=== PATIENT | male | born 1985 | race Caucasian/White ===

== ENCOUNTER 2016-10-29 12:06 | Emergency (ER) | payer BC ==
[2016-10-29 13:41] VITALS: BP 120/66
--- NOTE | 2016-10-29 15:41 | UC ---
Hand/Wrist HPI - History Of Current Complaint Chief Complaint: UC Stated Complaint: LEFT HAND PAIN Time Seen by Provider: 10/29/16 15:34 Hx Obtained From: Patient Onset/Duration: Sudden Onset - jammed left 5th finger playing basketball this morning. Hagan out of place and pushed it back with a "crunch", Lasting Hours - 4 Character Of Pain: Aching, Throbbing Aggravating Factor(s): Lifting, Flexion Associated Signs And Symptoms: Positive: Bruising. Negative: Numbness/Tingling Related History: Dominant Hand Right - Allergies/Home Medications Allergies/Adverse Reactions: Allergies Allergy/AdvReac Type Severity Reaction Status Date / Time No Known Allergies Allergy Verified 03/09/15 12:07 PMH/Surg Hx/FS Hx/Imm Hx Previously Healthy: Yes Endocrine History Of: Denies: Diabetes Cardiovascular History Of: Denies: Hypertension Respiratory History Of: Denies: Asthma - Surgical History Surgical History: None - Family History Known Family History: Positive: Cardiac Disease, Hypertension Family History: Father: HTN, [place] age 58, quadruple bypass. Paternal uncle: [place], quadruple bypass. Cousin: "mini heart attack" age 29 - Social History Occupation: Employed Full-time Lives: Alone Alcohol Use: Occasionally Substance Use Type: None Smoking Status (MU): Never Smoked Tobacco Review of Systems Musculoskeletal: Arthralgia All Other Systems Reviewed And Are Negative: Yes Physical Exam Triage Information Reviewed: Yes Appearance: Well-Appearing, No Pain Distress, Well-Nourished Vital Signs: Initial Vital Signs Temp 98.8 F 10/29/16 13:37 Pulse 60 10/29/16 13:37 Resp 16 10/29/16 13:37 BP 120/66 10/29/16 13:37 Pulse Ox 100 10/29/16 13:37 Vital Signs Reviewed: Yes Eyes: Positive: Conjunctiva Clear Neck exam: Normal Respiratory Exam: Normal Cardiovascular Exam: Normal Musculoskeletal: Positive: ROM Limited @ - Left 5th MCP swollen and unable to move, Other: - Tender over the distal 5th metacarpal Neurological Exam: Normal Neurological: Positive: Other: - sensation intact over the 5th finger Psychological Exam: Normal Skin Exam: Normal Procedures - Procedure Summary Procedure Summary: Left ulnar gutter splint placed by Hand/Wrist Course/Dx - Differential Dx/Diagnosis Differential Diagnosis/HQI/PQRI: Contusion, Fracture, Sprain Provider Diagnoses: Distal 5th metacarpal fracture. Discharge - Discharge Plan Condition: Stable Disposition: HOME Patient Education Materials: Boxer Fracture (ED), Splint Care (ED), How to Use a Sling (GEN)
--- NOTE | 2016-10-29 16:10 | RAD ---
INDICATION: Left hand injury. TECHNIQUE: 4 views of the left hand were obtained. FINDINGS: There is an oblique comminuted fracture of the distal diaphysis and metaphysis of the fifth metacarpal. The fracture fragments are overriding. In addition, there is anterior lateral angulation of the distal fragment relative to the proximal fragment. Joint spaces appear maintained. IMPRESSION: OBLIQUE, DISPLACED, ANGULATED FRACTURE OF THE FIFTH METACARPAL.
== END 2016-10-29 16:34 | disposition home or self-care (01) ==
LOC: UCCORT 12:06
DX: S62.317A Displaced fracture of base of fifth metacarpal bone, left hand, initial encounter for closed fracture (principal); W23.0XXA Caught, crushed, jammed, or pinched between moving objects, initial encounter; Y93.67 Activity, basketball; Y92.9 Unspecified place or not applicable
CPT/HCPCS: 99212; G0463

== ENCOUNTER → 2016-11-02 14:31 | Day surgery (SDC) | payer BC ==
[~2016-11-02 14:31] MED LIST: Buffered Lidocaine 1% SYR 3ML* 3 ML/SYR SYRINGE ONE; DiMENhydriNATE IV* 50 MG/ML VIAL IV PUSH PRN; Ketorolac INJ* 30 MG/ML 1 ML VIAL IV PRN; Ketorolac INJ* 30 MG/ML 1 ML VIAL ONE; Lidocaine 2% PF * 5 ML VIAL ONE; Propofol* 10 MG/ML 20 ML BTL IV PUSH ONE; ceFAZolin 2 GM PREMIX (*) 2 GM/50 ML BAG IVPB ONE; fentaNYL* 50 MCG/ML 2 ML VIAL (100 MCG VIAL) IV PRN; fentaNYL* 50 MCG/ML 2 ML VIAL (100 MCG VIAL) ONE; oxyCODONE/Acetamin 5/325 MG* TAB ONE
[2016-11-02 21:12] VITALS: BP 148/92
--- NOTE | 2016-11-03 13:16 | RAD ---
INDICATION: Trauma, fifth metacarpal injury COMPARISONS: 10/29/2016 TECHNIQUE: Fluoroscopy was provided for a surgical procedure. Total fluoroscopy time is: 22 seconds FINDINGS: Spot images of the straight internal fixation of the fifth metacarpal IMPRESSION: FLUOROSCOPY WAS PROVIDED FOR A SURGICAL PROCEDURE CPT II Codes: 6045F
--- NOTE | 2016-11-04 22:59 | OP ---
DATE OF OPERATION: 11/02/16 - [facility] DATE OF : 89 SURGEON: Vasiliy Gamboa MD SUPERVISOR SPECIAL EDUCATION: FABIO Aguilar ANESTHESIOLOGIST: Dr. Brasher. ANESTHESIA: General. PRE-OP DIAGNOSIS: Left displaced and malrotated fifth metacarpal distal shaft and neck fracture. POST-OP DIAGNOSIS: Left displaced and malrotated fifth metacarpal distal shaft and neck fracture. OPERATIVE PROCEDURE: Open reduction and internal fixation left fifth metacarpal comminuted distal shaft and neck fracture. INDICATIONS: Gianluca is a 31-year-old male. He had an injury playing basketball , fractured the left fifth metacarpal. On x-ray, it appeared to be a spiral oblique fracture. We talked about risks and benefits and treatment options including pinning versus open reduction and internal fixation. Ultimately, he wanted to proceed with open reduction and internal fixation. Again, we talked about the risk of nonunion, malunion, tendon adhesions amongst other things and he elected to proceed. ESTIMATED BLOOD LOSS: 5 mL. COMPLICATIONS: None. FINDINGS: Significantly comminuted fracture. DESCRIPTION OF PROCEDURE: Gianluca was seen in the preoperative holding area and the correct site and side were marked. We came back to the operating room, where anesthesia was induced and the arm was prepped and draped in the usual fashion. A formal time-out was performed. A curvilinear incision was made over the length of the fifth metacarpal bone. Dissection was carried down and the full-thickness flaps were raised off the paratenon. The interval between the EDM and the EDC tendon was developed. I then went ahead and split the periosteum longitudinally. Full-thickness flaps were raised right off the bone. Fracture site was identified. Immediately, I noted a significant amount of comminution. There was a significant amount of impaction as well. I went ahead and cleaned up the fracture site. This took quite a bit of work. Finally, I was able to mobilize the fracture fragments and release the impaction. I then went ahead and placed a [id number] clamp and reduced the spica bone in the shaft. Bones had a nice cortical maxx, I went ahead and placed one 1.5 mm lag screw. I then went ahead and secured a longitudinal split through the dorsal spica bone with a 1.3 mm lag screw from ulnar to radial. With this screw in place, I was able to place a second more proximal 1.5 mm lag screw to obtain additional stabilization. At this point, I brought in a 1.5 mm metal T- plate. There was not much dorsal bone left due to the comminution in the area of the metacarpal neck. Proximally, I was able to secure the bone and then I went ahead and placed distally some 1.5 mm variable- angle locking screws grabbing the subchondral bone distally and an additional more proximal screw out the volar metacarpal neck. Overall, the alignments were nice. I went ahead and checked fluoroscopy throughout the case and this looked nice. I went ahead and checked the clinical alignment. It did seem like initially he had been completely underlapping the ring finger. He now was brought out in from that rotation. I checked this compared to the contralateral hand. He seemed like he might be able to touch over corrected, but ultimately it was minimal and the bony reduction appeared anatomic clinically and on flouroscopy. I decided this was acceptable and fine. I went ahead and irrigated the wound. The periosteal flaps were raised and were then closed with some 5-0 Prolene suture with the knots buried. The plate was covered. I then went ahead and repaired the distal split I had made between the EDC and the EDM tendons with some 5-0 Prolene suture with the knot buried. I then went ahead and irrigated the wound and closed the skin with some 4-0 nylon suture. The wound was then dressed with Xeroform, 4x4's, sterile Webril, and an ulnar gutter splint was placed in the protected position. He was then awoken back up and taken to the recovery room in stable condition. POSTOPERATIVE PLAN: I will see him back in my office next week. We will get his splint off and I am going to let him start some gentle motion. He is not going to be able to do any lifting, pushing, or pulling for another month or so , but I will see him back in the office next week. [id number]/CPS #: [id number] BONILLA
== END | disposition home or self-care (01) ==
LOC: OREAST 14:31
PROVIDERS: ATTEND Orthopaedic Surgery Hand Surgery
DX: S62.337A Displaced fracture of neck of fifth metacarpal bone, left hand, initial encounter for closed fracture (principal); Z87.891 Personal history of nicotine dependence; W21.05XA Struck by basketball, initial encounter; Y93.67 Activity, basketball; Y92.310 Basketball court as the place of occurrence of the external cause
CPT/HCPCS: 76000; A9270-GY; C1713; C1776; J0690; J1885; J2704; J3010

== ENCOUNTER 2017-06-05 15:46 | Emergency (ER) | payer BC, OTHER ==
--- NOTE | 2017-06-05 15:55 | UC ---
Eye Complaint HPI - HPI Summary HPI Summary: 32 YEAR OLD MALE PRESENTS WITH COMPLAINS OF RIGHT EYE CONTUSION SECONDARY TO AN ELBOW BLOW. - History of Current Complaint Stated Complaint: HIT IN RIGHT EYE (WC) Time Seen by Provider: 06/05/17 15:51 Onset/Duration: Sudden Onset Timing: Constant Severity Initially: Moderate Severity Currently: Moderate Pain Scale Used: FLACC (Peds Only) - 4 Location of Injury: Conjunctiva Character: Sharp Aggravating Factor(s): Light Alleviating Factor(s): Nothing Associated Signs And Symptoms: Positive: Photophobia - Allergies/Home Medications Allergies/Adverse Reactions: Allergies Allergy/AdvReac Type Severity Reaction Status Date / Time No Known Allergies Allergy Verified 06/05/17 16:15 Home Medications: Home Medications ALPRAZolam TAB* [Xanax TAB*] 1 tab DAILY PRN 06/05/17 [History Confirmed ] PMH/Surg Hx/FS Hx/Imm Hx Previously Healthy: Yes - Surgical History Surgical History: None - Family History Known Family History: Positive: Cardiac Disease, Hypertension Family History: Father: HTN, [place] age 58, quadruple bypass. Paternal uncle: [place], quadruple bypass. Cousin: "mini heart attack" age 29 - Social History Alcohol Use: Weekly Alcohol Amount: 2-3 BEERS A WEEK Substance Use Type: Marijuana Substance Use Comment - Amount & Last Used: Smoking Status (MU): Former Smoker Review of Systems Constitutional: Negative Skin: Negative Eyes: Eye Redness, Photophobia, Other - RIGHT EYE SWELLING/ECCHYMOSIS ENT: Negative Respiratory: Negative Cardiovascular: Negative Gastrointestinal: Negative Genitourinary: Negative Motor: Negative Neurovascular: Negative Musculoskeletal: Negative Neurological: Negative Psychological: Negative All Other Systems Reviewed And Are Negative: Yes Physical Exam Triage Information Reviewed: Yes Eyes: Positive: Conjunctiva Inflamed, Other: - RIGHT EYE SWELLING/ECCHYMOSIS ENT Exam: Normal Dental Exam: Normal Neck exam: Normal Neck: Positive: 1 Respiratory Exam: Normal Cardiovascular Exam: Normal Abdominal Exam: Normal Musculoskeletal Exam: Normal Neurological Exam: Normal Psychological Exam: Normal Skin Exam: Normal Eye Complaint Course/Dx - Differential Dx/Diagnosis Provider Diagnoses: RIGHT EYE SWELLING. RIGHT EYE PAIN Discharge - Discharge Plan Condition: Stable Disposition: HOME Prescriptions: Cephalexin CAP* [Keflex CAP*] 500 mg PO TID #30 cap Patient Education Materials: Black Eye (ED), Eye Pain (ED) Forms: *Work Release Referrals: Ronen Nagel MD [Medical Doctor] - Vasiliy Stevens MD [Primary Care Provider] -
[2017-06-05 16:33] VITALS: BP 141/55
--- NOTE | 2017-06-05 16:59 | RAD ---
Indication: Right orbital injury. CT of the facial bones was obtained in the axial plane. Sagittal and coronal reconstructed images were obtained. The frontal sinuses are well aerated. Ethmoid air cells are unremarkable with no fracture. The maxillary sinuses demonstrates mucous retention cyst in the maxillary sinuses bilaterally. Zygoma and zygomatic arch are unremarkable. The orbits demonstrates no fracture. No intraconal and extraconal masses are noted. The ostiomeatal units appear patent. There is a right-sided caio bullosa noted. The mandible demonstrates no evidence of fracture. The maxilla demonstrates no evidence of fracture. The skull base is otherwise unremarkable. IMPRESSION: No fracture of the facial bones is identified. No intraconal or extraconal masses are noted. Mucus retention cysts in both maxillary sinuses.
== END 2017-06-05 17:09 | disposition home or self-care (01) ==
LOC: UCCORT 15:46
DX: S05.11XA Contusion of eyeball and orbital tissues, right eye, initial encounter (principal); H57.11 Ocular pain, right eye; R22.0 Localized swelling, mass and lump, head; W50.0XXA Accidental hit or strike by another person, initial encounter; Y93.9 Activity, unspecified; Y92.9 Unspecified place or not applicable; Y99.0 Civilian activity done for income or pay; Z87.891 Personal history of nicotine dependence
CPT/HCPCS: 70486; 99212; G0463

== ENCOUNTER 2018-07-03 10:51 | Emergency (ER) | payer OTHER ==
[2018-07-03 11:12] VITALS: BP 121/71
--- NOTE | 2018-07-03 11:17 | UC ---
Shoulder Pain HPI - HPI Summary HPI Summary: Patient states that while at work at the [employer] [employer] yesterday he collided with a resident during a touch football game. He states that he instantly heard a crack and had pain in the R shoulder. Today, he notes that the pain is much worse and his range of motion is limited by pain. He denies any neck or back pain is no associated numbness tingling or weakness to the arm. He denies any other injuries offers no other complaints. They did put something like icy hot on the area without relief. - History of Current Complaint Stated Complaint: WC - RIGHT SHOULDER INJURY Time Seen by Provider: 07/03/18 11:08 Hx Obtained From: Patient Timing: Constant Aggravating Factor(s): External Rotation Associated Signs And Symptoms: Negative: Swelling, Bruising, Weakness, Numbness/ Tingling - Risk Factors DVT Risk Factors: Negative Septic Arthritis Risk Factor: Negative - Allergies/Home Medications Allergies/Adverse Reactions: Allergies Allergy/AdvReac Type Severity Reaction Status Date / Time No Known Allergies Allergy Verified 07/03/18 11:08 Home Medications: Home Medications Lidocaine HCl/Menthol [Icy Hot Lidocaine Plus Me 4-1 %] 1 applic TOPICAL ONCE [History Confirmed 07/03/18] PMH/Surg Hx/FS Hx/Imm Hx Previously Healthy: Yes - Surgical History Surgical History: None Surgery Procedure, Year, and Place: LEFT hand- plate put in - Family History Known Family History: Positive: Cardiac Disease, Hypertension Family History: Father: HTN, [place] age 58, quadruple bypass. Paternal uncle: [place], quadruple bypass. Cousin: "mini heart attack" age 29 - Social History Occupation: Employed Full-time Alcohol Use: Weekly Alcohol Amount: 2-3 BEERS A WEEK Substance Use Type: Marijuana Substance Use Comment - Amount & Last Used: Smoking Status (MU): Former Smoker - Immunization History Most Recent Influenza Vaccination: NONE 2016 Vaccination Up to Date: Yes Review of Systems Constitutional: Negative - Acute right shoulder pain Skin: Negative Eyes: Negative ENT: Negative Respiratory: Negative Cardiovascular: Negative Gastrointestinal: Negative Genitourinary: Negative Motor: Negative Neurovascular: Negative Musculoskeletal: Other: Neurological: Negative Psychological: Negative Is Patient Immunocompromised?: No All Other Systems Reviewed And Are Negative: Yes Physical Exam Triage Information Reviewed: Yes Appearance: Well-Appearing Vital Signs Reviewed: Yes Eyes: Positive: Conjunctiva Clear ENT: Positive: Normal ENT inspection Neck: Positive: Supple, Nontender, No Lymphadenopathy, Other: - No C-spine tenderness or deformity Respiratory: Positive: Chest non-tender, Lungs clear, Normal breath sounds Cardiovascular: Positive: RRR, No Murmur Abdomen Description: Positive: Nontender, No Organomegaly, Soft Bowel Sounds: Positive: Present Musculoskeletal: Positive: Other: - Thoracic and lumbar spine are without deformity or tenderness. Patient Olea from the waist up for upper extremity exam. Appears to be slight swelling to the right anterior shoulder when compared to the left but no additional gross deformity, swelling or discoloration. Patient notes some tenderness to the anterior shoulder with palpation as well as the teres mm's. Passive range of motion is intact but patient complains of pain with external rotation. Active range of motion is intact but patient complains of pain with abduction and external rotation both of which are limited. He has a negative drop arm test and negative anterior stress. There is no numbness over the deltoid muscle. The area below the shoulder is atraumatic. The hand has full sensorivascular motor function. Neurological: Positive: Alert Psychological: Positive: Age Appropriate Behavior Skin Exam: Normal Diagnostics - Radiology No standard instances Radiology Interpretation Completed By: Radiologist - R shoulder=. Negative radiographic exam of the RIGHT shoulder. Shoulder Course/Dx - Course Course Of Treatment: no fx or dislocation. no concern for infection. will tx otc nsaid, sling during day and ortho f/u for ? rotator cuff injury. - Differential Dx/Diagnosis Differential Diagnosis/HQI/PQRI: AC Separation, Contusion, Dislocation, Fracture (Closed), Rotator Cuff Injury, Sprain, Strain, Tendonitis Provider Diagnoses: Acute R shoulder pain. Possible rotator cuff injury. Discharge - Sign-Out/Discharge Documenting (check all that apply): Patient Departure All imaging exams completed and their final reports reviewed: Yes - Discharge Plan Condition: Stable Disposition: HOME Patient Education Materials: Shoulder Pain (ED) Forms: *Work Release Referrals: Vasiliy Stevens MD [Primary Care Provider] - If Needed Harvey Doan MD [Medical Doctor] - 2 Days Additional Instructions: SLING DURING DAY, REMOVE AT BEDTIME. TAKE MOTRIN OR ALEVE PER LABEL ROUTINELY FOR 3 DAYS THEN NEEDED - Billing Disposition and Condition Condition: STABLE Disposition: Home
[2018-07-03] MEDS ORDERED: Ibuprofen ADULT LIQ* 600 MG/30 ML UDC PO ONE (11:19)
--- NOTE | 2018-07-03 11:39 | RAD ---
Indication: RIGHT shoulder pain following football injury yesterday. Comparison: No relevant prior exams available on the [facility] for comparison. Technique: Internal rotation AP, external rotation Grashey, scapular Y, axillary views RIGHT shoulder Report: Negative for fracture. Normal acromioclavicular and glenohumeral joint alignment. Unremarkable soft tissue contours. IMPRESSION: #. Negative radiographic exam of the RIGHT shoulder.
== END 2018-07-03 11:50 | disposition home or self-care (01) ==
LOC: UCCORT 10:51
DX: M25.511 Pain in right shoulder (principal); F12.90 Cannabis use, unspecified, uncomplicated; Z87.891 Personal history of nicotine dependence
CPT/HCPCS: 99212; A9270-GY; G0463